=== PATIENT | male | born 1985 | race Caucasian/White ===

== ENCOUNTER 2020-03-29 18:58 | Emergency (ER) | payer BC, SELFPAY ==
--- NOTE | ~2020-03-29 | XR_ITS ---
EXAMINATION: XR chest 1V portable DATE: 03/29/2020 20:27 INDICATION: Midsternal chest pain and dyspnea TECHNIQUE: frontal view of the chest was obtained. COMPARISON: None FINDINGS: The lungs are clear with no focal airspace opacities, pulmonary edema, pleural effusion or pneumothor ax. The cardiomediastinal silhouette is normal. Visualized bones and soft tissues are unremarkable. IMPRESSION: 1. No acute cardiopulmonary disease. Reviewed, dictated and finalized at location [facility]
[2020-03-29 19:01] VITALS: BP 155/89; PULSE 103; RESP 22; TEMP 36.4; O2SAT 100
--- NOTE | 2020-03-29 19:04 | ECG_ITS ---
Measurements Intervals [place] Rate: 79 P: 61 NC: 160 QRS: 26 QRSD: 98 T: 32 QT: 343 QTc: 395 Interpretive Statements SINUS RHYTHM DELAYED PRECORDIAL R/S TRANSITION ST ELEVATION IN DIFFUSE LEADS- PROBABLY EARLY REPOLARIZATION BASELINE ARTIFACT- III BORDERLINE ECG Electronically Signed On 03-30-2020 8:39:58 DIRECTOR EPIDEMIOLOGY by Jed Mcgovern D.O.
[2020-03-29 19:44] LABS: Basophils Absolute Auto 0.1 K/mm3 (0.0-0.1); Basophils Percent Auto 0.6 % (0.2-1.2); Eosinophils Absolute Auto 0.1 K/mm3 (0-0.3); Eosinophils Percent Auto 0.8 % (0-4.4); Hematocrit 49.1 % (42.0-52.0); Hemoglobin 17.4 g/dL (14.0-18.0); Immature Granulocyte Absolute 0.04 K/mm3 (0.00-0.031); Immature Granulocyte Percent A 0.3 % (0-0.5); Lymphocytes Absolute Auto 4.45 K/mm3 (0.9-3.2); Lymphocytes Percent Auto 28.9 % (18.3-44.2); Mean Corpuscular HGB Conc 35.4 g/dl (32-36); Mean Corpuscular Hemoglobin 31.2 pg (26-34); Mean Platelet Volume 9.5 fl (7.4-10.4); Monocytes Absolute Auto 1.3 K/mm3 (0.1-0.6); Monocytes Percent Auto 8.6 % (2.6-8.5); Neutrophils Absolute Auto 9.4 K/mm3 (1.3-6.7); Neutrophils Percent Auto 60.8 % (45.5-73.1); Platelet Count Result 235 k/mm3 (150-375); Red Blood Count 5.58 M/mm3 (4.6-6.20); Red Cell Distribution Width 12.9 % (11.5-14.5); White Blood Count 15.4 K/mm3 (4.5-10.0)
[2020-03-29 19:58] LABS: Anion Gap 13 mmol/L (8-16); Blood Urea Nitrogen 18 mg/dL (9-20); Calcium 10.1 mg/dL (8.4-10.2); Carbon Dioxide 22 mmol/L (22-30); Chloride 106 mmol/L (98-107); Estimated CRCL calculation 112 ml/min; Estimated Glomerular Filt Rate > 60; Glucose 97 mg/dL (75-110); Potassium 3.8 mmol/L (3.4-5.0); Sodium 141 mmol/L (137-145)
--- NOTE | 2020-03-29 20:13 | ED.SOB ---
HPI - SOB/Dyspnea General Chief Complaint: Shortness of Breath/Dyspnea Stated Complaint: chest pain Time Seen by Provider: 03/29/20 19:41 Source: patient Mode of arrival: ambulatory Limitations: no limitations History of Present Illness HPI Narrative: This is a 34 year old male that presents to the ER for an episode of chest pain today. Reports he was in the passenger seat as they were driving home. Reports he started to develop substernal, sharp chest pain. Reports he felt short of breath. Reports this was about 30 minutes prior to arrival. Reports he was told in triage he was hyperventilating. Does report he has had increased stress recently, but denies any history of panic or anxiety. Denies fever, cough, current chest pain or shortness of breath. Review of Systems Review of Systems: Narrative: CONSTITUTIONAL: Denies fever ENT: Denies rhinorrhea, congestion CARDIOVASCULAR: Reports chest pain. Denies edema. RESPIRATORY: Reports dyspnea. Denies cough All systems reviewed & are unremarkable except as noted in HPI and below PMFSH Past Medical History Medical History (Updated 03/29/20 @ 21:36 by Gricelda Real PA-C) No active medical problems Social History Social History (Updated 03/29/20 @ 20:18 by Gricelda Real PA-C) Smoking status: Current every day smoker Exam Narrative: Exam Narrative: GENERAL: Well-appearing, well-nourished, and in no acute distress. HEAD: Normocephalic, atraumatic. EYES: EOMI. ENT: Mucous membranes moist. Oropharynx without tonsillar hypertrophy exudate or other lesions. NECK: Supple. No adenopathy or masses. No carotid bruits or JVD CHEST: Clear to auscultation. No respiratory distress. No wheezes rales or rhonchi HEART: Regular rate and rhythm. No murmur heard. Normal peripheral pulses. EXTREMITIES: Normal range of motion. No edema. SKIN: Warm, dry, no rash. NEURO: No focal deficits. Alert and oriented x3. PSYCH: Normal mood and affect Course Vital Signs Vital signs: Vital Signs Temperature 97.6 F 03/29/20 19:01 Pulse Rate 103 H 03/29/20 19:01 Respiratory Rate 22 H 03/29/20 19:01 Blood Pressure 155/89 H 03/29/20 19:01 Pulse Oximetry 100 03/29/20 19:01 Temperature 97.6 F 03/29/20 19:01 Pulse Rate 72 03/29/20 20:27 Respiratory Rate 20 03/29/20 20:27 Blood Pressure 129/81 03/29/20 20:27 Pulse Oximetry 97 03/29/20 20:27 MDM - SOB/Dyspnea MDM Narrative Medical decision making narrative: Patient presents to the emergency department for an episode of sharp, substernal chest pain. Associated with shortness of breath. Patient is afebrile and nontoxic-appearing. Mildly tachycardic and hypertensive upon arrival, this normalized without intervention. CBC with leukocytosis to 15.4. Metabolic panel without concerning findings. EKG shows changes consistent with early repolarization. His baseline troponin is negative. Chest x-ray is without acute findings. His heart score is 2. Patient eloped after being seen by provider Lab Data Attestation: I reviewed the patient's lab results. Result diagrams: 03/29/20 19:38 03/29/20 19:38 Labs: Lab Results 03/29/20 03/29/20 03/29/20 Range/Units 19:37 19:38 19:38 WBC 15.4 H (4.5-10.0) K/mm3 RBC 5.58 (4.6-6.20) M/mm3 Hgb 17.4 (14.0-18.0) g/dL Hct 49.1 (42.0-52.0) % MCV 88.0 (80-100) fl MCH 31.2 (26-34) pg MCHC 35.4 (32-36) g/dl RDW 12.9 (11.5-14.5) % Plt Count 235 (150-375) k/mm3 MPV 9.5 (7.4-10.4) fl Immature Gran % (Auto) 0.3 (0-0.5) % Neut % (Auto) 60.8 (45.5-73.1) % Lymph % (Auto) 28.9 (18.3-44.2) % [place] % (Auto) 8.6 H (2.6-8.5) % Eos % (Auto) 0.8 (0-4.4) % Baso % (Auto) 0.6 (0.2-1.2) % Lymph # (Auto) 4.45 H (0.9-3.2) K/mm3 [place] # (Auto) 1.3 H (0.1-0.6) K/mm3 Eos # (Auto) 0.1 (0-0.3) K/mm3 Baso # (Auto) 0.1 (0.0-0.1) K/mm3 Abs Immat Gran (auto) 0.04 H (0.00-0.031) K/mm
[2020-03-29 20:26] LABS: Troponin I < 0.012 ng/mL (0.000-0.034)
[2020-03-29 20:27] VITALS: BP 129/81; PULSE 72; RESP 20; O2SAT 97
[2020-03-29 20:36] LABS: INR 0.9; Prothrombin Time 12.9 Seconds (11.1-14.7)
[2020-03-29 20:37] LABS: Partial Thromboplastin Time 27.8 SECONDS (22.3-36.8)
--- NOTE | 2020-03-29 21:33 | PC.NURSE ---
pt is upset that monitor keeps going off and is leaving ama.
== END 2020-03-29 21:49 | disposition left against medical advice (07) ==
PROVIDERS: Physician Assistant; Emergency Provider Emergency Medicine
DX: R07.9 Chest pain, unspecified (principal); F17.200 Nicotine dependence, unspecified, uncomplicated; R94.31 Abnormal electrocardiogram [ECG] [EKG]
CPT/HCPCS: 36415; 71045; 80048; 84484; 85025; 85610; 85730; 93005; 99284